=== PATIENT | male | born 1990 | race Two or more races ===

== ENCOUNTER 2020-01-10 17:21 | Emergency (ER) | payer SELFPAY ==
[~2020-01-10] VITALS: Ht 162.6 cm; Wt 74.4 kg
--- NOTE | 2020-01-10 17:48 | NUR ---
urine sent to lab.
[2020-01-10 17:52] LABS: APPEARANCE,URINE Clear (CLEAR); BILIRUBIN,URINE Negative (NEGATIVE); BLOOD, URINE Negative Ery/uL (NEGATIVE); COLOR,URINE Yellow (YELLOW); KETONES,URINE Negative (NEGATIVE); LEUKOCYTE ESTERASE ,URINE Negative (NEGATIVE); NITRITE, URINE Negative (NEGATIVE); PROTEIN,URINE Negative (NEGATIVE); UGLUCOSE Negative (NEGATIVE); UROBILINOGEN,URINE 0.2 EU/dL (0.2)
[2020-01-10 18:18] VITALS: BP 152/84
--- NOTE | 2020-01-10 18:18 | NUR ---
Patient discharged to home in stable condition. Written and verbal after care instructions given. Patient verbalizes understanding of instruction.
== END 2020-01-10 18:19 | disposition home or self-care (01) ==
LOC: ER 17:21
DX: R30.0 Dysuria (principal); R03.0 Elevated blood-pressure reading, without diagnosis of hypertension
CPT/HCPCS: 81000-TC; 87491; 87591

== ENCOUNTER 2020-01-13 10:39 | Emergency (ER) | payer SELFPAY ==
[~2020-01-13] VITALS: Ht 162.6 cm; Wt 75.7 kg
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
--- NOTE | 2020-01-13 10:50 | NUR ---
BS 124 MG/DL, MD SHAH AWARE Addendum: 01/13/20 at 1107 by BRI BS 124 MG/DL, MD ROTH AWARE
--- NOTE | 2020-01-13 10:55 | NUR ---
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
[2020-01-13 11:28] VITALS: BP 129/81
--- NOTE | 2020-01-13 11:29 | NUR ---
Patient discharged to home in stable condition. Written and verbal after care instructions given. Patient verbalizes understanding of instruction.
== END 2020-01-13 11:29 | disposition home or self-care (01) ==
LOC: ER 10:40
DX: R30.0 Dysuria (principal); R00.2 Palpitations
CPT/HCPCS: 82962-TC

== ENCOUNTER → 2020-05-22 | Emergency (ER) | payer MEDICAID ==
[~2020-05-22] VITALS: Ht 165.1 cm; Wt 70.3 kg
[2020-05-22 19:57] VITALS: BP 137/74
--- NOTE | 2020-05-22 21:05 | NUR ---
Patient does not wish to proceed with medical care recommended by Dr. LIN. Patient given information related to possible complications, up to and including , which could occur as a result of leaving the hospital at this time. Patient verbalizes understanding of risks involved due to leaving against medical advice. Patient has signed AMA form.
--- NOTE | 2020-05-22 21:06 | NUR ---
UNABLE TO DEPART DUE TO MEDITEC
== END | disposition home or self-care (01) ==
LOC: ER 20:06
DX: H53.8 Other visual disturbances (principal); H43.392 Other vitreous opacities, left eye

== ENCOUNTER 2022-02-03 20:00 | Emergency (ER) | payer SELFPAY ==
[~2022-02-03] VITALS: Ht 165.1 cm; Wt 72.6 kg
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
[2022-02-03] MEDS ORDERED: KETOROLAC TROMETHAMINE INJ 30 MG/ML VIAL ONE (21:10)
[2022-02-03] MEDS ORDERED: CYCLOBENZAPRINE 10 MG TABLET ONE (21:10)
--- NOTE | 2022-02-03 21:20 | NUR ---
SERIES OF X-RAY DONE
[2022-02-03] MEDS ORDERED: KETOROLAC TROMETHAMINE INJ 60 MG/2 ML VIAL IM ONE (21:30)
[2022-02-03] MEDS ORDERED: CYCLOBENZAPRINE 10 MG TABLET PO ONE (21:30)
[2022-02-03] MEDS ORDERED: IBUP-1955 PO (21:52)
[2022-02-03] MEDS ORDERED: CYCL10TA9 PO (21:52)
--- NOTE | 2022-02-03 21:58 | NUR ---
Patient discharged to home in stable condition. Written and verbal after care instructions given. Patient verbalizes understanding of instruction.
[2022-02-03 22:00] VITALS: BP 131/94
== END 2022-02-03 22:00 | disposition home or self-care (01) ==
LOC: ER 20:20
DX: S46.911A Strain of unspecified muscle, fascia and tendon at shoulder and upper arm level, right arm, initial encounter (principal); S16.1XXA Strain of muscle, fascia and tendon at neck level, initial encounter; Z60.2 Problems related to living alone; Z79.899 Other long term (current) drug therapy; V89.2XXA Person injured in unspecified motor-vehicle accident, traffic, initial encounter; Y93.89 Activity, other specified; Y92.89 Other specified places as the place of occurrence of the external cause; Y99.8 Other external cause status
CPT/HCPCS: 72074; 73501; 73564; 96372; 99284; J1885

== ENCOUNTER 2023-06-16 07:59 | Emergency (ER) | payer MEDICAID ==
[~2023-06-16] VITALS: Ht 170.2 cm; Wt 72.6 kg
[~2023-06-16 07:59] MED LIST: CYCL10TA9 PO; IBUP-1955 PO
[2023-06-16 08:09] VITALS: TEMP 98
[2023-06-16] MEDS ORDERED: ONDANSETRON HCL/PF 4 MG/2 ML VIAL IVP ONE (08:30)
[2023-06-16] MEDS ORDERED: KETOROLAC TROMETHAMINE INJ 30 MG/ML VIAL IV ONE (08:30)
[2023-06-16] MEDS ORDERED: IV NS 0.9% 1,000 ML BAG IV ONE (08:30)
[2023-06-16] MEDS ORDERED: KETOROLAC TROMETHAMINE 15 MG/ML VIAL ONE (08:33)
[2023-06-16] MEDS ORDERED: ONDANSETRON HCL/PF 4 MG/2 ML VIAL ONE (08:33)
[2023-06-16 08:36] LABS: BASOPHILS # (AUTO) 0.2 K/uL (0.0-0.2); BASOPHILS % (AUTO) 2.7 % (0.0-2.0); EOSINOPHILS # (AUTO) 0.1 K/uL (0.0-0.7); EOSINOPHILS % (AUTO) 1.2 % (0.0-6.0); HEMATOCRIT 47 % (39-51); HEMOGLOBIN 16.2 g/dL (13.5-17.5); LYMPHOCYTES # (AUTO) 1.5 K/uL (0.8-4.8); LYMPHOCYTES % (AUTO) 19.3 % (20.0-44.0); MEAN CORPUSCULAR HEMOGLOBIN 29 PG (26.0-33.0); MEAN CORPUSCULAR HGB CONC 35 g/dl (31.0-36.0); MEAN CORPUSCULAR VOLUME 84 fL (80-96); MONOCYTES # (AUTO) 0.3 K/uL (0.1-1.30); NEUTROPHILS # (AUTO) 5.6 K/uL (1.8-8.9); NEUTROPHILS % (AUTO) 72.8 % (43.0-81.0); PLATELET COUNT (AUTO) 265 K/uL (150-450); RED BLOOD CELL COUNT(AUTO) 5.56 MIL/uL (4.5-6.0); RED CELL DISTRIBUTION WIDTH 13.5 % (11.5-15.0); WHITE BLOOD COUNT (AUTO) 7.8 K/uL (4.3-11.0)
[2023-06-16 08:46] LABS: CALCIUM, SERUM 8.9 mg/dL (8.5-10.1); CREATININE 1.1 mg/dL (0.6-1.3); POTASSIUM 3.5 mmol/L (3.5-5.1)
[2023-06-16 08:46] LABS: APPEARANCE,URINE CLEAR (CLEAR); BILIRUBIN,URINE NEGATIVE (NEGATIVE); BLOOD, URINE NEGATIVE Ery/uL (NEGATIVE); COLOR,URINE YELLOW (YELLOW); KETONES,URINE NEGATIVE (NEGATIVE); LEUKOCYTE ESTERASE ,URINE NEGATIVE (NEGATIVE); NITRITE, URINE NEGATIVE (NEGATIVE); PROTEIN,URINE NEGATIVE (NEGATIVE); UGLUCOSE NEGATIVE (NEGATIVE); UROBILINOGEN,URINE 0.2 EU/dL (0.2)
[2023-06-16 08:52] LABS: ALBUMIN 4.2 g/dL (3.4-5.0); BILIRUBIN,DIRECT 0.1 mg/dL (0.0-0.2); BILIRUBIN,TOTAL 0.7 mg/dL (0.2-1.0); TOTAL PROTEIN, SERUM 7.6 g/dL (6.4-8.2)
[2023-06-16 10:03] VITALS: BP 126/78; O2SAT 98
== END 2023-06-16 10:06 | disposition home or self-care (01) ==
LOC: ER 08:05
DX: R10.84 Generalized abdominal pain (principal); Z79.899 Other long term (current) drug therapy; Z60.2 Problems related to living alone
CPT/HCPCS: 99285; 74176; 96374; 96361; 96375; 85025; 80048; 87086; 83690; 80076; 81003; 36415; J2405; J7030; J1885